=== PATIENT | male | born 1995 | race Caucasian/White ===

== ENCOUNTER 2024-01-19 15:37 | Emergency (ER) | payer BC, SELFPAY ==
--- NOTE | 2024-01-19 16:04 | ER ---
Nurse's Notes [facility] Name: Adam Rushing Age: 28 yrs Sex: Male : 1995 Arrival Date: 01/19/2024 Time: 15:37 Bed DX3 Private MD: Diagnosis: Marte's palsy Presentation: 01/18 15:53 Chief complaint: Patient states: Woke up at 0600 with numbness to right side of face. cm10 Pt reports that when he went to bed last night at 0230 he was having some tingling behind his right ear. Coronavirus screen: Client denies travel out of the [place] in the last 14 days. Ebola Screen: Patient denies travel to an Ebola-affected area in the 21 days before illness onset. No symptoms or risks identified at this time. Initial Sepsis Screen: Does the patient meet any 2 criteria? No. Patient's initial sepsis screen is negative. Does the patient have a suspected source of infection? No. Patient's initial sepsis screen is negative. Risk Assessment: Do you want to hurt yourself or someone else? Patient reports no desire to harm self or others. Onset of symptoms was January 19, 2024. 15:53 Method Of Arrival: Ambulatory cm10 15:53 Acuity: SHANELL 3 cm10 Triage Assessment: 15:55 General: Appears in no apparent distress. comfortable, Behavior is calm, cooperative. cm10 Neuro: No deficits noted. Level of Consciousness is awake, alert, obeys commands, Oriented to person, place, time, situation, Appropriate for age [employer] are equal bilaterally Moves all extremities. Gait is steady, Speech is normal, Facial symmetry appears normal, Tingling in Right side of face Numbness in Right side of face. Historical: - Allergies: 15:54 No Known Allergies; cm10 - Home Meds: 15:54 None [Active]; cm10 - PMHx: 15:54 None; cm10 - PSHx: 15:54 None; cm10 - Immunization history:: Adult Immunizations up to date. - Infectious Disease History:: Denies. - Social history:: Smoking status: Patient denies any tobacco usage or history of. - Family history:: not pertinent. Screenin:15 [facility] ED Fall Risk Assessment (Adult) History of falling in the last 3 months, hb including since admission No falls in past 3 months (0 pts) Confusion or Disorientation No (0 pts) Intoxicated or Sedated No (0 pts) Impaired Gait No (0 pts) Mobility Assist Device Used No (0 pt) Altered Elimination No (0 pt) Score/Fall Risk Level 0 - 2 = Low Risk Oriented to surroundings, Maintained a safe environment, Educated pt \T\ family on fall prevention, incl call for assistance when getting out of bed. Abuse screen: Denies threats or abuse. Denies injuries from another. Nutritional screening: No deficits noted. Tuberculosis screening: No symptoms or risk factors identified. Assessment: 16:15 General: Appears in no apparent distress. Behavior is calm, cooperative. Pain: Denies hb pain. Neuro: Level of Consciousness is awake, alert, obeys commands, Oriented to person, place, time, situation, Reports paresthesias right face. Cardiovascular: Patient's skin is warm and dry. Respiratory: Respiratory effort is even, unlabored, Respiratory pattern is regular, symmetrical. GI: No signs and/or symptoms were reported involving the gastrointestinal system. : No signs and/or symptoms were reported regarding the genitourinary system. EENT: No signs and/or symptoms were reported regarding the EENT system. Derm: Skin is pink, warm \T\ dry. Musculoskeletal: No signs and/or symptoms reported regarding the musculoskeletal system. Vital Signs: 15:53 BP 156 / 97; Pulse 93; Resp 16; Temp 97.1; Pulse Ox 100% ; Weight 154.67 kg; Height 6 cm10 ft. 1 in. ; Pain 0/10; 15:53 Body Mass Index 44.99 (154.67 kg, 185.42 cm) cm10 15:53 Pain Scale: Adult cm10 Shaw Coma Score: 15:59 Eye Response: spontaneous(4). Motor Response: obeys commands(6). Verbal Response: doris oriented(5). Total: 15. ED Course: 15:40 Patient arrived in ED. ra3 15:54 Triage completed. cm10 15:55 Arm band placed on Patient placed in waiting room. cm10 15:56 Tanvir Thompson MD is Attending Physician. doris 16:03 Joe Mejia MD is Referral Physician. doris 16:15 Patient has correct armband on for positive identification. Provided Education on: hb medications, follow up. 16:15 No provider procedures requiring assistance completed. Patient did not have IV access hb during this emergency room visit. Administered Medications: 16:19 Drug: Valtrex PO 1000 mg PO once Route: PO; hb 16:19 Drug: predniSONE PO 60 mg PO once Route: PO; hb Medication: 16:15 VIS not applicable for this client. hb Outcome: 16:03 Discharge ordered by . doris 16:15 Discharged to home ambulatory, hb 16:15 Condition: stable 16:15 Discharge instructions given to patient, Instructed on discharge instructions, follow up and referral plans. medication usage, Demonstrated understanding of instructions, follow-up care, medications, Prescriptions given X 2, 16:19 Patient left the ED. hb Signatures: Tanvir Thompson MD MD cha Baxter, Heather RN RN Oumou Rendon RN RN cm10 Maida Strong 3
--- NOTE | 2024-01-19 16:04 | EDPHYS ---
Physician Documentation [facility] Name: Adam Rushing Age: 28 yrs Sex: Male : 1995 Arrival Date: 01/19/2024 Time: 15:37 Bed DX3 Private MD: ED Physician Tanvir Thompson HPI: 01/18 15:59 This 28 yrs old Male presents to ER via Ambulatory with complaints of right doris side of face numbness and tingling. 15:59 The patient's problem is reported as a facial droop, on right, paresthesias, in right doris side of face. Onset: The symptoms/episode began/occurred just prior to arrival, today. Duration: The episode is continuous. Context: symptoms became apparent upon waking, occurred at home. The symptoms are alleviated by nothing. The symptoms are aggravated by nothing. Associated signs and symptoms: The patient has no apparent associated signs or symptoms. Severity of symptoms: At their worst the symptoms were moderate in the emergency department the symptoms are unchanged. Patient's baseline: Neuro: alert and fully oriented. The patient has not experienced similar symptoms in the past. Historical: - Allergies: 15:54 No Known Allergies; cm10 - Home Meds: 15:54 None [Active]; cm10 - PMHx: 15:54 None; cm10 - PSHx: 15:54 None; cm10 - Immunization history:: Adult Immunizations up to date. - Infectious Disease History:: Denies. - Social history:: Smoking status: Patient denies any tobacco usage or history of. - Family history:: not pertinent. ROS: 15:59 Constitutional: Negative for fever, chills, and weight loss, Eyes: Negative for injury, doris pain, redness, and discharge, ENT: Negative for injury, pain, and discharge, Neck: Negative for injury, pain, and swelling, Cardiovascular: Negative for chest pain, palpitations, and edema, Respiratory: Negative for shortness of breath, cough, wheezing, and pleuritic chest pain, Abdomen/GI: Negative for abdominal pain, nausea, vomiting, diarrhea, and constipation, Back: Negative for injury and pain, : Negative for injury, bleeding, discharge, and swelling, MS/Extremity: Negative for injury and deformity, Skin: Negative for injury, rash, and discoloration, Psych: Negative for depression, anxiety, suicide ideation, homicidal ideation, and hallucinations, Allergy/Immunology: Negative for hives, rash, and allergies, Endocrine: Negative for neck swelling, polydipsia, polyuria, polyphagia, and marked weight changes, Hematologic/Lymphatic: Negative for swollen nodes, abnormal bleeding, and unusual bruising, 15:59 Neuro: Positive for weakness, of the face, Exam: 15:59 Radiologist reports: nery [facility] 15:59 Constitutional: This is a well developed, well nourished patient who is awake, alert, and in no acute distress. Eyes: Pupils equal round and reactive to light, extra-ocular motions intact. Lids and lashes normal. Conjunctiva and sclera are non-icteric and not injected. Cornea within normal limits. Periorbital areas with no swelling, redness, or edema. ENT: Nares patent. No nasal discharge, no septal abnormalities noted. Tympanic membranes are normal and external auditory canals are clear. Oropharynx with no redness, swelling, or masses, exudates, or evidence of obstruction, uvula midline. Mucous membranes moist. Neck: Trachea midline, no thyromegaly or masses palpated, and no cervical lymphadenopathy. Supple, full range of motion without nuchal rigidity, or vertebral point tenderness. No Meningismus. Chest/axilla: Normal chest wall appearance and motion. Nontender with no deformity. No lesions are appreciated. Cardiovascular: Regular rate and rhythm with a normal S1 and S2. No gallops, murmurs, or rubs. Normal PMI, no JVD. No pulse deficits. Respiratory: Lungs have equal breath sounds bilaterally, clear to auscultation and percussion. No rales, rhonchi or wheezes noted. No increased work of breathing, no retractions or nasal flaring. Abdomen/GI: Soft, non-tender, with normal bowel sounds. No distension or tympany. No guarding or rebound. No evidence of tenderness throughout. Back: No spinal tenderness. No costovertebral tenderness. Full range of motion. Male : Normal genitalia with no discharge or lesions. Skin: Warm, dry with normal turgor. Normal color with no rashes, no lesions, and no evidence of cellulitis. MS/ Extremity: Pulses equal, no cyanosis. Neurovascular intact. Full, normal range of motion. Psych: Awake, alert, with orientation to person, place and time. Behavior, mood, and affect are within normal limits. 15:59 Head/face: Noted is right face weak. 15:59 Neuro: Orientation: is normal, appropriate for stated age, no acute changes, Mentation: is normal, appropriate for stated age, no acute changes, Memory: is normal, appropriate for stated age, no acute changes, Cranial nerves: facial droop noted on right, with forehead involved. Cerebellar function: is grossly normal, Motor: moves all fours, strength is normal, Sensation: appropriate no acute changes, Gait: is steady, appropriate for age, Babinski testing is normal, seizure activity, is not displayed by the patient, Vital Signs: 15:53 BP 156 / 97; Pulse 93; Resp 16; Temp 97.1; Pulse Ox 100% ; Weight 154.67 kg; Height 6 cm10 ft. 1 in. ; Pain 0/10; 15:53 Body Mass Index 44.99 (154.67 kg, 185.42 cm) cm10 15:53 Pain Scale: Adult cm10 Shaw Coma Score: 15:59 Eye Response: spontaneous(4). Motor Response: obeys commands(6). Verbal Response: doris oriented(5). Total: 15. MDM: 15:56 Patient medically screened. doris Administered Medications: 16:19 Drug: Valtrex PO 1000 mg PO once Route: PO; hb 16:19 Drug: predniSONE PO 60 mg PO once Route: PO; hb Disposition Summary: 01/19/24 16:03 Discharge Ordered Notes: Location: Home doris Problem: new doris Symptoms: have improved doris Condition: Stable doris Diagnosis - Marte's palsy doris Followup: doris - With: Private Physician - When: 2 - 3 days - Reason: Recheck today's complaints, Continuance of care, Re-evaluation by your physician Followup: doris - With: Joe Mejia MD - When: 2 - 3 days - Reason: Recheck today's complaints, Re-evaluation by your physician Discharge Instructions: - Discharge Summary Sheet doris - Marte's Palsy, Adult doris Forms: - Medication Reconciliation Form doris - Antibiotic Education doris - Prescription Opioid Use doris - Patient Portal Instructions [facility] - Leadership Thank You Letter [facility] Prescriptions: - Artificial Eye Lubricant 83-15 % Ophthalmic ointment - instill 0.25 inch OPHTHALMIC route every 4 hours; 1 unit; Refills: 0, Product doris Selection Permitted - Valtrex 1 gram Oral tablet - take 1 tablet ORAL route every 8 hours for 7 days; 21 tablet; Refills: 0, [facility] Product Selection Permitted - Prednisone 20 mg Oral Tablet - take 3 tablets ORAL route once daily for 5 days; 15 tablet; Refills: 0, Product [facility] Selection Permitted Signatures: Tanvir Thompson MD MD cha Baxter, Heather, RN RN Oumou Villalobos RN RN cm10
[2024-01-19] MEDS ORDERED: VALACYCLOVIR 500 MG TAB ONE (16:10)
[2024-01-19] MEDS ORDERED: predniSONE 20 MG TAB ONE (16:10)
[2024-01-19 16:40] VITALS: BP 156/97; TEMP 97.1; O2SAT 100
== END 2024-01-19 16:19 | disposition home or self-care (01) ==
LOC: ER 15:37
DX: G51.0 Bell's palsy (principal)
CPT/HCPCS: 99283; J7512